=== PATIENT | male | born 1995 | race Two or more races ===

== ENCOUNTER 2018-09-15 11:21 | Emergency (ER) | payer SELFPAY ==
[2018-09-15] MEDS ORDERED: ONDANSETRON 4 MG TAB.RAPDIS PO ONE (11:41)
--- NOTE | 2018-09-15 11:46 | ER Document Report ---
HPI - HPI Patient complains to provider of: Nausea vomiting diarrhea Time Seen by Provider: 09/15/18 11:37 Onset: Yesterday Onset/Duration: Sudden Quality of pain: No pain Severity: None Pain Level: Denies Context: Patient presents emergency department with complaints of nausea vomiting diarrhea. He reports diarrhea twice last night twice today. He also complains of vomiting at least 6 times this morning. Denies fever. Reports his just had the same symptoms couple weeks ago. Patient looks good. Patient denies abdominal pain. He denies recent trip. Denies recent antibiotics. Associated Symptoms: Diarrhea, Nausea, Vomiting Exacerbated by: Denies Relieved by: Denies Similar symptoms previously: No Recently seen / treated by doctor: No Past Medical History - General Information source: Patient - Social History Smoking Status: Unknown if Ever Smoked Cigarette use (# per day): No Frequency of alcohol use: None Drug Abuse: None Lives with: Family Family History: Reviewed & Not Pertinent Patient has suicidal ideation: No Patient has homicidal ideation: No - Medical History Medical History: Negative Surgical Hx: Negative Vertical Provider Document - CONSTITUTIONAL Agree With Documented VS: Yes Exam Limitations: No Limitations General Appearance: WD/WN, No Apparent Distress - Nontoxic looking - HEENT HEENT: Atraumatic, Normocephalic. negative: Conjuctival Injection - NECK Neck: Normal Inspection, Supple. negative: Lymphadenopathy-Left, Lymphadenopathy-Right - RESPIRATORY Respiratory: Breath Sounds Normal, No Respiratory Distress - CARDIOVASCULAR Cardiovascular: Regular Rate, Regular Rhythm - GI/ABDOMEN Gastrointestinal: Abdomen Soft, Abdomen Non-Tender - MUSCULOSKELETAL/EXTREMETIES Musculoskeletal/Extremeties: MAEW, FROM - NEURO Level of Consciousness: Awake, Alert, Appropriate - DERM Integumentary: Warm, Dry Course - Re-evaluation Re-evalutation: 09/15/18 11:45 Patient looks good. Does not look toxic does not look dehydrated vital signs a re stable. Will give him some Zofran p.o. fluids to see how he feels. 09/15/18 12:32 Patient drinking p.o. fluids without vomiting. Reports he feels better. We will discharge him with Zofran to go back instructed on good handwashing push fluids and return for worsening symptoms he verbalized understanding all instructions. Dictation of this chart was performed using voice recognition software; therefore, there may be some unintended grammatical errors. - Vital Signs Vital signs: Temp Pulse Resp BP Pulse Ox 98.1 F 69 16 131/76 H 95 09/15/18 11:26 09/15/18 11:26 09/15/18 11:26 09/15/18 11:26 09/15/18 11:26 Discharge - Discharge Clinical Impression: Nausea vomiting and diarrhea Condition: Stable Disposition: HOME, SELF-CARE Instructions: Antinausea Medication ([facility]), Diarrhea, Nonspecific ([facility]), OTC Antidiarrhea Medication ([facility]), Vomiting ([facility]) Additional Instructions: *You have been evaluated for nausea/vomiting/diarrhea *Take medication as prescribed *Over the counter anti-diarrheal as indicated *Ensure adequate fluid intake as discussed to prevent dehydration *Follow up with a primary care provider within 5 days *Return to ED for worsening condition, changes, needs Monitor your blood pressure. Your blood pressure was elevated today. This may be because you were anxious, in pain or because you need medication. It is important to follow up with your primary care provider for full evaluation. Forms: Return to Work, Elevated Blood Pressure
[2018-09-15] MEDS ORDERED: ONDANSETRON ODT 4 MG TAB (6 TAB/ER DISP) PO PRN (12:32)
[2018-09-15 12:38] VITALS: BP 122/77
== END 2018-09-15 12:40 | disposition home or self-care (01) ==
LOC: ER 11:21
DX: R11.2 Nausea with vomiting, unspecified (principal); R19.7 Diarrhea, unspecified
CPT/HCPCS: 99283; S0119